=== PATIENT | male | born 1980 | race Caucasian/White ===

== ENCOUNTER → 2020-08-22 | Outpatient (REF) | payer OTHER ==
[2020-08-22 11:56] LABS: MAGNESIUM LEVEL 2.1 MG/DL (1.8-2.4); PHOSPHORUS LEVEL 3.6 MG/DL (2.5-4.9)
== END ==
LOC: M SFHCRHEU 10:16
PROVIDERS: ATTEND Internal Medicine
DX: M79.7 Fibromyalgia (principal)

== ENCOUNTER → 2020-09-07 | Outpatient (CLI) | payer OTHER ==
--- NOTE | 2020-09-10 13:38 | SLEEPHOME ---
DIAGNOSTIC HOME SLEEP STUDY DATE: 09/07/2020 ORDERED BY: Penny Johnson M.D. Diagnostic home sleep testing was performed due to concern for the obstructive sleep apnea syndrome in this patient with a history of fatigue. For testing, a nocturnal T3 respiratory monitoring device was used. Continuous record was made of pulse, oxygen saturation, air flow, chest and abdominal strain, and body position. 9 hours and 59 minutes of data were reviewed. There were 5 hours and 46 minutes marked as time in bed. During the interval marked time in bed, there were 133 respiratory events identified of 10 seconds in duration or greater for a respiratory event index of 23. The events were more frequently obstructive; however, 43 mixed and central apneas were also seen. Baseline pulse rate 60. Pulse rate range 46 to 81. Baseline saturation was 93%. Saturations fell to 86%. Testing was performed in both the supine and non-supine positions. IMPRESSION: Abnormal home sleep testing, with repetitive respiratory events and oxygen desaturations to 86% with a respiratory event index of 23, is consistent with the obstructive sleep apnea syndrome. RECOMMENDATION: Given the frequently of central events and significant oxygen desaturations, referral for a formal sleep evaluation is recommended.
== END ==
LOC: M SLEEP HO 10:26
PROVIDERS: ATTEND Internal Medicine
DX: R53.82 Chronic fatigue, unspecified (principal)

== ENCOUNTER → 2020-10-24 | Outpatient (CLI) | payer OTHER ==
--- NOTE | 2020-10-25 16:32 | SLEEPCENT ---
NOCTURNAL POLYSOMNOGRAPHY DATE: 10/24/2020 ORDERED BY: YODIT Blunt Nocturnal polysomnography was performed for evaluation of sleep physiology in this patient with a history suggesting obstructive sleep apnea syndrome and abnormal home sleep testing results. 7 hours and 15 minutes of data were reviewed. There were 373 minutes of sleep identified. Sleep latency was prolonged at 84 minutes. REM latency was normal at 84.5 minutes. Sleep architecture was fair with three REM cycles noted. Overall sleep efficiency was 80%. The electrocardiogram showed a sinus rhythm with an average heart rate of 46 beats per minute; rate range 40 to 64. EEG showed normal waveforms for wake and sleep. There were no focal EEG events identified. There were 45 respiratory events identified of 10 seconds in duration or greater for an apnea-hypopnea index of 7.2. The events were obstructive, not exclusive to sleep stage nor to body posture. Arousals from respiratory events occurred four times and oxygen desaturations were seen into the 80s. There was some minor activity in the limb EMG leads and snoring was noted over the entire study. IMPRESSION: Obstructive sleep apnea syndrome (G47.33), apnea-hypopnea index 7.2. RECOMMENDATION: The patient should be encouraged to return to [facility]. In the interim, alcohol and sedative avoidance should be practiced and caution exercised during the operation of motor vehicles.
== END ==
LOC: M SLEEP 20:00
PROVIDERS: ATTEND Physician Assistant
DX: G47.33 Obstructive sleep apnea (adult) (pediatric) (principal)

== ENCOUNTER → 2023-01-05 | Outpatient (REF) | payer OTHER | LOC: M SFHCRHEU 11:31 | PROVIDERS: ATTEND Internal Medicine | DX: M79.641 Pain in right hand (principal); M79.642 Pain in left hand ==

== ENCOUNTER → 2023-12-28 | Outpatient (REF) | payer OTHER ==
[2023-12-28 17:11] LABS: BASO # 0.1 10^3/uL (0.0-0.2); BASO % 0.7 % (0.0-1.0); EOS # 0.4 10^3/uL (0.0-0.5); EOS % 5.1 % (0.0-3.0); HEMATOCRIT 46.5 % (42.0-52.0); HEMOGLOBIN 15.2 g/dl (13.5-17.5); LYMPH # 2.3 10^3/uL (1.5-5.0); MEAN CORPUSCULAR HEMOGLOBIN 29.6 pg (27.0-33.0); MEAN CORPUSCULAR HGB CONC 32.7 g/dl (32.0-36.5); MEAN CORPUSCULAR VOLUME 90.5 fl (80.0-96.0); MONO # 0.6 10^3/uL (0.0-0.8); MONO % 7.6 % (2.0-8.0); NEUTROPHILS # 3.9 10^3/uL (1.5-8.5); NEUTROPHILS % 54.2 % (36.0-66.0); PLATELET COUNT, AUTOMATED 252 10^3/uL (150-450); RED BLOOD COUNT 5.14 10^6/uL (4.30-6.10); WHITE BLOOD COUNT 7.2 10^3/uL (4.0-10.0)
[2023-12-28 17:17] LABS: IRON (FE) 75 UG/DL (65-175); PERCENT SATURATION 18.4 % (19.7-50.0); TOTAL IRON BINDING CAPACITY 407 UG/DL (250-425)
[2023-12-28 17:18] LABS: ALBUMIN 4.1 G/DL (3.2-5.2); ALKALINE PHOSPHATASE 164 U/L (46-116); ALT/SGPT 30 U/L (7.0-40); AST/SGOT 23 U/L (<34); BILIRUBIN,DIRECT 0.4 MG/DL (<0.4); BLOOD UREA NITROGEN 13 MG/DL (9-23); CALCIUM LEVEL 9.1 MG/DL (8.5-10.1); CARBON DIOXIDE LEVEL 30 MMOL/L (20-31); CHLORIDE LEVEL 105 MMOL/L (98-107); CREATININE FOR GFR 0.79 MG/DL (0.70-1.30); GLOMERULAR FILTRATION RATE > 60.0 (>60); GLUCOSE, FASTING 91 MG/DL (60-100); PHOSPHORUS LEVEL 3.3 MG/DL (2.5-4.9); POTASSIUM SERUM 4.2 MMOL/L (3.5-5.1); SODIUM LEVEL 139 MMOL/L (136-145); TOTAL PROTEIN 6.9 G/DL (5.7-8.2)
[2023-12-28 17:19] LABS: TOTAL 25(OH) VITAMIN D 14.8 NG/ML (20.0-100.0)
[2023-12-28 17:20] LABS: VITAMIN B12 LEVEL 355 PG/ML (211-911)
[2023-12-28 17:24] LABS: CPK CREATINE PHOSPHOKINASE 119 U/L (46-171)
== END ==
LOC: M SFHCRHEU 11:58
PROVIDERS: ATTEND Internal Medicine
DX: M79.10 Myalgia, unspecified site (principal); M19.041 Primary osteoarthritis, right hand